=== PATIENT | male | born 1970 | race Two or more races ===

== ENCOUNTER → 2021-07-10 09:41 | Outpatient (BNVA) | payer SELFPAY | PROVIDERS: Visit Provider Physician Assistant Medical | DX: Z02.79 Encounter for issue of other medical certificate (principal) ==

== ENCOUNTER 2025-03-20 11:41 | Emergency (ER) | payer OTHER, SELFPAY ==
--- NOTE | 2025-03-20 11:48 | ED.GENADULT ---
HPI - General Adult General Chief complaint: Skin/Abscess/Foreign Body Stated complaint: Abscess inside L cheek Time Seen by Provider: 03/20/25 13:45 Source: patient Mode of arrival: ambulatory Limitations: no limitations History of Present Illness ED Provider: Dr. Alarcon HPI narrative: 54-year-old male otherwise healthy states he noticed swelling and ingrown hair versus acne versus spider bite to left side of his face 4 days ago he did use warm compresses but isn't worse since getting larger came in for evaluation. He denies any history of abscesses denies fevers chills cough shortness breath nausea vomiting diarrhea Related Data Previous Rx's ?Medication ?Instructions ?Recorded acetaminophen 325 mg tablet 325 mg PO QID PRN pain #90 tabs 03/20/25 (Tylenol) doxycycline hyclate 100 mg capsule 100 mg PO BID Cellulitis #20 caps 03/20/25 Allergies Allergy/AdvReac Type Severity Reaction Status Date / Time Penicillins Allergy Severe Anaphylaxis Verified 03/20/25 11:55 Review of Systems Review of Systems: Review of systems: General: Patient denies any fever chills recent illness or falls Musculoskeletal: Denies back pain or body aches or other injuries HEENT: denies headache, runny nose, ear pain Respiratory: denies shortness of breath, cough Cardiovascular: no chest pain or palpitations : denies dysuria, frequency Abdomen: no nausea vomiting denies abdominal pain Extremities: no swelling, no pain Skin: left facial induration swelling no diaphoresis Yes all other systems are reviewed and are negative Physical Exam ED Vital Signs: Vital Signs - 24 hr 03/20/25 11:54 Temperature 97.5 F Pulse Rate 123 H Respiratory Rate 18 Blood Pressure 130/87 Pulse Oximetry 98 Oxygen Delivery Method Room Air BMI result Body Mass Index 27.6 General: Well-appearing well-nourished in no signs of distress HEENT: Normocephalic atraumatic Neck: No signs of JVD, no masses no tenderness or lymphadenopathy Cardiovascular: Regular rate and rhythm Respiratory: Clear to auscultation bilaterally Abdomen: Soft nontender no masses Extremities: Normal pedal pulses no signs of edema Skin: concern for abscess versus cellulitis of the face patient has red indurated side of his face there is no fluctuance does have a black dot in the centerDry warm no rashes Back: No tenderness full ROM Course Course Course Narrative: This is a rapid medical exam performed by Srikanth Pradhan NP: Additional HPI, ROS, PE not included below will be deferred to primary provider. Patient is a 54-year-old male with history of T2DM presenting to the ED with complaint of redness and swelling to left side of face, ? abscess x 4 days. Tried warm compresses but area is getting larger. Subjective fever, nausea. Plan: labs Procedures Procedure Narrative Procedure Narrative: bedside ultrasound confirmed there was no abscess or fluid formation underneath just cobblestoning of the skin Medical Decision Making Medical Decision Making MDM Narrative: labs were sent triage which are fairly unremarkable other than an elevated WBC and minimally elevated CRP I do think this is cellulitis which was confirmed by bedside ultrasound I will send home Differential Diagnosis Differential Diagnoses: The differential diagnosis associated with the presentation includes abscess versus cellulitis Lab Data [facility] Lab Attestation statement: I reviewed the patient's lab results. 03/20/25 12:27 03/20/25 12:27 Labs: Lab Results 03/20/25 Range/Units 12:27 WBC 15.6 H (4.8-10.8) X10*3/uL RBC 5.68 (4.60-5.80) X10*6/uL Hgb 16.2 (14.0-18.0) g/dl Hct 45.7 (42.0-52.0) % MCV 80.5 (80.0-98.0) fL MCH 28.5 (27.0-33.0) pg MCHC 35.4 (31.0-36.0) g/dl RDW 11.9 (11.0-16.0) % Plt Count 358 (160-400) X10*3/uL MPV 9.6 (9.4-12.4) fL Immature Gran % (Auto) 0.4 (0.0-0.4) % Neut % (Auto) 67.0 (45-73) % Lymph % (Auto) 22.9 (20-40) % [place] % (Auto) 8.7 (2-11) % Eos % (Auto) 0.6 (0-4) % Baso % (Auto) 0.4 (0-2) % Lymph # (Auto) 3.6 (1.2-4.9) X10*3/uL [place] # (Auto) 1.4 H (0.1-1.2) X10*3/uL Eos # (Auto) 0.1 (0.0-0.4) X10*3/uL Baso # (Auto) 0.1 (0.0-0.2) X10*3/uL Abs Immat Gran (auto) 0.06 H (0.00-0.03) X10*3/uL Absolute Neuts (auto) 10.5 H (2.0-8.3) x10*3/uL Absolute Nucleated RBC 0.000 (0.0-0.012) X10*3/uL Nucleated RBC % (auto) 0.0 (0.0-0.2) /100WBC ESR 6 (0-15) MM/HR Sodium 131 L (135-145) mmol/L Potassium 5.4 H (3.3-5.1) mmol/L Chloride 95 L (96-108) mmol/L Carbon Dioxide 26 (22-29) mmol/L Anion Gap 15 (12-20) BUN 11 (9-16) mg/dL Creatinine 1.00 (0.5-1.4) mg/dL Estim Creat Clear Calc 87.4 Estimated GFR > 60 Random Glucose 386 H* (60-115) mg/dL Calcium 9.8 (8.4-10.2) mg/dL Total Bilirubin 1.6 H (0.0-1.0) mg/dL AST 26 (5-37) U/L ALT 36 (0-40) U/L Alkaline Phosphatase 59 (39-117) U/L C-Reactive Protein 1.12 H (< or = 0.50) mg/dL Total Protein 7.9 (6.5-8.0) g/dL Albumin 4.7 (3.5-5.0) g/dL Discharge Plan Discharge Clinical Impression: Cellulitis Patient Disposition: Home, Self-Care Instructions: Cellulitis (ED) Additional Instructions: You were seen today for infection to your face. You had labs sent which were okay and a US performed at the bedside. Please call to follow up . If you notice more swelling or have any other concerns please return to the ER. Prescriptions: New acetaminophen [Tylenol] 325 mg tablet 325 mg PO QID PRN (Reason: pain) Qty: 90 0RF doxycycline hyclate 100 mg capsule 100 mg PO BID Qty: 20 0RF Print Language: [place]er
[2025-03-20 11:54] VITALS: BP 130/87; PULSE 123; RESP 18; TEMP 36.4; O2SAT 98; BMI 27.6
[2025-03-20 12:32] LABS: MANUAL DIFF FLAG NO
[2025-03-20 12:35] LABS: Basophils Absolute Auto 0.1 X10*3/uL (0.0-0.2); Basophils Percent Auto 0.4 % (0-2); Eosinophils Absolute Auto 0.1 X10*3/uL (0.0-0.4); Eosinophils Percent Auto 0.6 % (0-4); Hematocrit 45.7 % (42.0-52.0); Hemoglobin 16.2 g/dl (14.0-18.0); Imm Gran Abs Auto 0.06 X10*3/uL (0.00-0.03); Imm Gran Pct Auto 0.4 % (0.0-0.4); Lymphocytes Absolute Auto 3.6 X10*3/uL (1.2-4.9); Lymphocytes Percent Auto 22.9 % (20-40); Mean Corpuscular HGB Conc 35.4 g/dl (31.0-36.0); Mean Corpuscular Hemoglobin 28.5 pg (27.0-33.0); Mean Corpuscular Volume 80.5 fL (80.0-98.0); Mean Platelet Volume 9.6 fL (9.4-12.4); Monocytes Absolute Auto 1.4 X10*3/uL (0.1-1.2); Monocytes Percent Auto 8.7 % (2-11); Neutrophils Absolute Auto 10.5 x10*3/uL (2.0-8.3); Platelet Count 358 X10*3/uL (160-400); Red Blood Count 5.68 X10*6/uL (4.60-5.80); Red Cell Distribution Width 11.9 % (11.0-16.0); White Blood Count 15.6 X10*3/uL (4.8-10.8)
[2025-03-20 13:00] LABS: Alanine Aminotransferase 36 U/L (0-40); Albumin Level 4.7 g/dL (3.5-5.0); Alkaline Phosphatase 59 U/L (39-117); Anion Gap 15 (12-20); Aspartate Amino Transferase 26 U/L (5-37); Bilirubin Total 1.6 mg/dL (0.0-1.0); Blood Urea Nitrogen 11 mg/dL (9-16); C Reactive Protein 1.12 mg/dL (< or = 0.50); Calcium 9.8 mg/dL (8.4-10.2); Carbon Dioxide 26 mmol/L (22-29); Chloride 95 mmol/L (96-108); Creatinine Clr Calc Pharmacy 87.4; Estimated Glomerular Filt Rate > 60; Glucose Random 386 mg/dL (60-115); Potassium 5.4 mmol/L (3.3-5.1); Sodium 131 mmol/L (135-145); Total Protein 7.9 g/dL (6.5-8.0)
[2025-03-20 13:13] LABS: Erythrocyte Sedimentation Rate 6 MM/HR (0-15)
[2025-03-20 14:10] VITALS: BP 142/84; PULSE 102; RESP 18; TEMP 36.6; O2SAT 97
[2025-03-20] MEDS: Doxycycline Monohydrate 100 MG CAPSULE PO (14:18)
[2025-03-20 14:21] VITALS: BP 142/84; PULSE 100; RESP 18; TEMP 36.6; O2SAT 97
[2025-03-20 14:26] VITALS: BP 142/84; PULSE 100; RESP 18; TEMP 36.6; O2SAT 97
--- OUTSIDE RECORDS SUMMARY | 2025-03-20 15:16 | XMS_ITS | Encounter Summary ---
Author Organization [facility] Address [address] [place] [address] Care Team Providers Care Plier Worker Name Role Phone Ema Winkler MD Primary Care Provider Reason for Visit * Reason Onset Date Comments Facial Swelling 03/20/2025 ABSESS ON LEFT SIDE OF FACE 03/20/2025 Encounter Details Date Type Department Care Team (Late st Contact Info) Description 03/20/2025 Telephone Adult Medicine [address] [phone] Citlaly Pinzon [place] Facial Swelling; ABSESS ON LEFT SIDE OF FACE Social History Tobacco Use Types Packs/Day Years Used Date Smoking Tobacco: Never Smokeless Tobacco: Never Alcohol Use Standard Drinks/Week Comments No 0 (1 standard drink = 0.6 oz pur e alcohol) Sex and Gender Information Value Date Recorded Sex Assigned at Not on file Legal Sex Male 9:50 PM EST Gender Identity Not on file Sexual Orientation Not on file documented as of this encounter Progress Notes * Elsy David RN - 03/20/2025 9:20 AM EDT Called pt. He stated about 3-4 days ago he had a ingrown hair on left side of face . I was messingwith it now he has a hard as a rock area on left side of face that is causing swelling from corner of mouth to under his left eye all on left side of face . Last night he felt he had a fever, dizziness and nausea . Today he is sweating, but no nausea or dizziness . His blood glucose is high but he hasn't checked it he estimates it is 270ish. I advised to be evaluated in the ER. And to avoid concentrated sugars , and have someone drive him. Pt. Verbalized understanding * Citlaly Pinzon MA - 03/20/2025 8:40 AM EDT Patient call requires triage: Symptoms patient is presenting: ABSCESS ON LEFT SIDE OF FACE WITH PAIN AND SWELLING. STARTED OUT ASA LITTLE PIMPLE AND ITS HAS GOTTEN LARGER AND VERY PAINFUL. IT LOOKS INFECTED .THINKS HE HAD A FEVER LAST NIGHT. PATIENT WAS FEELING COLD LAST NIGHT. How long has patient had these symptoms?: 4 DAYS For ALL patients calling to schedule any appointment (routine, sick visit, follow up, consult, etc.) in the outpatient setting please ask the following questions: Do you have fever of higher than 101, sore throat with difficulty swallowing or severe shortness ofbreath? no If YES to any of these above symptoms, send a message to triage and do not book. Red dot. If no, an audio or video visit should be booked. Have you had close contact with someone with Coronavirus in the last 14 days? no Have you traveled abroad? no Have you traveled recently to another state outside of [place], [place], [place], [place], [place], [place], [place]? no o If yes, did you quarantine for 14 days or have a negative covid test? no If yes to any of the above, patient is not to be scheduled in office until after 14 day quarantine or negative covid test. If pain or injury related was it due to an accident at work or from a motor vehicle accident? If yes, date of accident/Injury: No If yes, gather 3rd constitution party insurance information Third Constitution Party Information: not applicable PCP: Ema Winkler MD Payor: [employer] HE[employer]AN / Plan: [employer] MEDICAID / Product Type: *No Product type* / documented in this encounter Plan of Treatment Upcoming Encounters Date Type Department Care Team (Late st Contact Info) Description 03/30/2025 10:45 AM EDT Office Visit Adult Medicine [address] [phone] Indira Clifford PA [address] [place] [id number] documented as of this encounter Visit Diagnoses Not on filedocumented in this encounter Care Teams Plier Worker Relationship Specialty Start Date End Date Ema Winkler MD [address] [place] [address] PCP - General 09/15/22 documented as of this encounter
--- OUTSIDE RECORDS SUMMARY | 2025-03-20 15:16 | XMS_ITS | Clinical Summary ---
Author Organization [address] Address [address] [place] [phone] Phone Care Team Providers Care Home Advisor Name Role Phone Ema Winkler MD Primary Care Provider Allergies Active Allergy Reactions Criticality Noted Date Comments Bee Venom Protein (Honey Bee) Anaphylaxis High 11/11 Penicillin G Anaphylaxis High 11/11/2018 Medications EPINEPHrine (EpiPen 2-Ilya) 0.3 mg/0.3 mL injection Inject 0.3 mL (0.3 mg total) into the thigh. 2 Active buPROPion SR (WELLBUTRIN SR) 150 mg 12 hr tablet Take 1 tablet (150 mg total) by mouth 1 (one) time each day in the morning. 2 Active bisacodyL (DULCOLAX) 5 mg EC tablet Take 2 tabs by mouth right before beginning bowel prep. Follow instructions given by office for timing. 3 Active albuterol HFA (PROAIR HFA ; PROVENTIL HFA ; VENTOLIN HFA) 90 mcg/actuation inhaler Inhale 2 puffs by mouth. 4 Active aspirin 81 mg EC tablet Take 1 tablet (81 mg total) by mouth. Active multivitamin (MULTIPLE VITAMINS ORAL) Take by mouth. Active blood sugar diagnostic (FreeStyle Lite Strips) test strip USE DAILY TO TEST BLOOD SUGAR. 0 Active FREESTYLE LANCETS MISC USE DAILY TO TEST BLOOD SUGAR. 0 Active simvastatin (ZOCOR) 20 mg tablet TAKE 1 TABLET BY MOUTH EVERYDAY AT BEDTIME 90 tablet 5 Active lisinopriL (PRINIVIL,ZESTR IL) 10 mg tablet TAKE 1 TABLET BY MOUTH 1 TIME EACH DAY. 90 tablet 5 Active metFORMIN (GLUCOPHAGE) 1,000 mg tablet Take 1 tablet (1,000 mg total) by mouth 1 (one) time each day with breakfast. 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 V24, [facility] V28) 03/10/2019 Hypertriglyceridemia 03/10/2019 Microalbuminuria 03/10/2019 Overweight (BMI 25.0-29.9) 03/10/2019 Hypertension 11/11/2018 Insomnia 11/11/2018 Encounters Date Type Department Care Team Description 03/20/2025 Telephone Adult Medicine [address] [phone] [place] Facial Swelling; ABSESS ON LEFT SIDE OF FACE from Last 3 Months Surgical History Surgery Date Site/Laterality Comments APPENDECTOMY PROCEDURE: HISTORICAL APPENDECTOMY Medical History Medical History Date Comments Type 2 diabetes mellitus wit h renal manifestations ([facility] V24, [facility] V28) 03/10/2019 DX:Type 2 di abetes mellitus with renal manifestations (HCC) Microalbuminuria 03/10/2019 DX:Microalbumin uria Hypertriglyceridemia 03/10/2019 DX:Hypertri glyceridemia Insomnia 11/11/2018 DX:Insomnia Hypertension 11/11/2018 DX:Hypertension Obesity (BMI 30-39.9) 03/10/2019 DX:Obesity (BMI 30-39.9) Family History Medical History Relation Name Comments Breast cancer Aunt Diabetes Mother Hypertension Mother Cervical cancer Sister Relation Name Status Comments Aunt Mother Sister Social History Tobacco Use Types Packs/Day Years Used Date Smoking Tobacco: Never Smokeless Tobacco: Never Alcohol Use Standard Drinks/Week Comments No 0 (1 standard drink = 0.6 oz pur e alcohol) Sex and Gender Information Value Date Recorded Sex Assigned at Not on file Legal Sex Male 9:50 PM EST Gender Identity Not on file Sexual Orientation Not on file Obstetrics History Last Filed Vital Signs Vital Sign Reading Time Taken Comments Blood Pressure 100/64 09/06/2024 10:51 AM EDT Pulse 93 09/06/2024 10:51 AM EDT Temperature - - Respiratory Rate - - Oxygen Saturation - - Inhaled Oxygen Concentration - - Weight 80.3 kg (177 lb) 09/06/2024 10:51 AM EDT Height 170.2 cm (5' 7 ) 09/06/2024 10:51 AM EDT Body Mass Index 27.72 09/06/2024 10:51 AM EDT Plan of Treatment Upcoming Encounters Date Type Department Care Team (Late st Contact Info) Description 03/30/2025 10:45 AM EDT Office Visit Adult Medicine [facility] [address] [place] [address] Indira Clifford PA [address] [place] [address] Health Maintenance Due Date Last Done Comments Diabetes: Annual Foot Exam 1982 Diabetes: Annual Retina Eye Exam 1982 DTaP,Tdap,and Td Vaccines (1 - Tdap) 1991 Hepatitis B Vaccines (1 of 3 - 19+ 3-dose series) 1991 Pneumococcal Vaccine: 50+ Ye ars (1 of 2 - PCV) 1991 Pneumococcal Vaccine: Pediat rics (0 to 5 Years) and At-Risk Patients (6 to 64 Years) (1 of 2 - PCV) 1991 Zoster Vaccines (1 of 2) 2022 Colorectal Cancer Screening: Colonoscopy 10/17/2022 Depression Screening 10/17/2022 HIV Screening 10/17/2022 Hepatitis C Screening 10/17/2022 Social Influencers of Health Screening 10/17/2022 COVID-19 Vaccine (1 - 2023-2 5 season) 2024 Diabetes: Blood Sugar Contro l Test (HGBA1C) 03/07/2025 09/06/2024 Influenza Vaccine (Season Ended) 2025 Diabetes: Annual Urine Albumin-Creatinine Ratio (uACR) 09/06/2025 09/06/2024 Diabetes: Annual GFR (Glomer ular Filtration Rate) 09/06/2025 09/06/2024 Hypertension/CHF/CAD Annual BMP Blood Test 09/06/2025 09/06/2024 Cholesterol Screening (Lipid Panel) 09/06/2029 09/06/2024 HIB Vaccines Aged Out No longer eligi ble based on patient's age to complete this topic HPV Vaccines Aged Out No longer eligi ble based on patient's age to complete this topic Hepatitis A Vaccines Aged Out No long er eligible based on patient's age to complete this topic IPV Vaccines Aged Out No longer eligi ble based on patient's age to complete this topic MMR Vaccines Aged Out No longer eligi ble based on patient's age to complete this topic Meningococcal ACWY Vaccine Aged Out N o longer eligible based on patient's age to complete this topic Meningococcal B Vaccine Aged Out No l onger eligible based on patient's age to complete this topic RSV Immunization Patients Un janey 20 months Aged Out No longer eligible b ased on patient's age to complete this topic Varicella Vaccines Aged Out No longer eligible based on patient's age to complete this topic Insurance Care Teams Home Advisor Relationship Specialty Start Date End Date Ema Winkler MD [address] [place] [address] PCP - General 09/15/22
--- OUTSIDE RECORDS SUMMARY | 2025-03-20 15:16 | XMS_ITS | Encounter Summary ---
Author Organization [facility] Address [address] [place] [address] Care Team Providers Care Director Blood Bank Name Role Phone Nanette Oleary MD Primary Care Provider [facility] Eliceo Santillan MD Primary Care Provider [phone] Ema Winkler MD Primary Care Provider [phone] Reason for Visit * Reason Onset Date Comments TEST RESULTS 08/14/2019 result notes Encounter Details Date Type Department Care Team Description 08/14/2019 Telephone Adult Medicine [address] [phone] Ana Cristina Penaloza PA-C TEST RESULTS (result notes) Social History Tobacco Use Types Packs/Day Years Used Date Smoking Tobacco: Never Smokeless Tobacco: Never Alcohol Use Standard Drinks/Week Comments No 0 (1 standard drink = 0.6 oz pur e alcohol) Sex Assigned at Date Recorded Not on file Job Start Date Occupation Industry Not on file Not on file Not on file documented as of this encounter Miscellaneous Notes * Telephone Encounter - Shakeel Alejandre M.A. - 08/14/2019 9:14 AM EDT Spoke with patient he is aware of his results. Please let patient know that the blood work did look normal. I would recommend that he continue with his cholesterol medication and make sure he is drinking plenty of water. He may trial a [id number] magnesium supplement before bed at night for his leg cramps. documented in this encounter Plan of Treatment Not on file documented as of this encounter Visit Diagnoses Not on filedocumented in this encounter Care Teams Director Blood Bank Relationship Specialty Start Date End Date Nanette Oleary MD PCP - General Internal Medicine 11/11/18 09/08/21 Eliceo Ni MD [address] [place] [id number] PCP - General Internal Medicine 09/09/21 09/14/22 Ema Winkler MD [address] [place] [id number] PCP - General Internal Medicine 09/15/22 documented as of this encounter
--- OUTSIDE RECORDS SUMMARY | 2025-03-20 15:16 | XMS_ITS | Clinical Summary ---
Author Organization [facility] Address [address] [place] [address] Care Team Providers Care Cash Surrender Calculator Name Role Phone Ema Winkler MD Primary Care Provider [phone] Allergies Active Allergy Reactions Severity Noted Date Comments Bee Stings Anaphylaxis High 11/11/2018 Penicillin G Anaphylaxis High 11/11/2018 Medications Medication Sig Dispensed Refills Start Date End Date Status Multiple Vitamin (ONE-A-DAY MENS OR) Take by mouth. 0 A ctive aspirin 81 MG tablet Take 81 mg by mouth daily. 0 Active Glucose Blood (FREESTYLE LITE) Strip USE DAILY TO TEST BLOOD SUGAR. 100 Strip 5 07/24/2020 Active FREESTYLE LANCETS Misc USE DAILY TO TEST BLOOD SUGAR. 100 Each 5 07/24/2020 Active EPINEPHrine 0.3 MG/0.3ML Solution Auto-injector Inject 0.3 mg into the muscle as needed for Other (anaphylactic reaction). 2-pack. Fill with whichever brand is covered by insurance. 2 Each 2 01/28/2022 Active buPROPion (WELLBUTRIN SR) 150 MG 12 hr tablet TAKE 1 TABLET BY MOUTH ONCE DAILY IN THE MORNING 0 09/30/2022 Active bisacodyl (Dulcolax) 5 MG EC tablet Take 2 tabs by mouth right before beginning bowel prep. Follow instructions given by office for timing. 2 Tablet 0 06/01/2023 Active lisinopril (PRINIVIL,ZESTRIL) 10 MG tabletIndications:Pr imary hypertension Take 1 Tablet by mouth daily. 90 Tablet 0 06/06/2024 Active simvastatin (ZOCOR) 20 MG tabletIndications:Hy perlipidemia, unspecified hyperlipidemia type Take 1 Tablet by mouth at bedtime. 90 Tablet 0 06/06/2024 Active metformin (GLUCOPHAGE) 1000 MG tabletIndications:Ty pe 2 diabetes mellitus with microalbuminuria, without long-term current use of insulin (HCC) Take 1 Tablet by mouth daily (with breakfast). 90 Tablet 0 06/06/2024 Active ALBUTEROL SULFATE 108 (90 Base) MCG/ACT Aero Soln Inhale 2 Puffs into the lungs every 4 hours as needed for Cough, Wheezing or Shortness of Breath. 13 g 1 09/06/2024 Active Active Problems Problem Noted Date Urinary frequency 06/06/2024 Diabetes mellitus with macroalbuminuric diabetic nephropathy 03/10/2019 Microalbuminuria 03/10/2019 Hypertriglyceridemia 03/10/2019 Overweight (BMI 25.0-29.9) 03/10/2019 Hypertension 11/11/2018 Insomnia 11/11/2018 Resolved Problems Problem Noted Date Resolved Date Bee sting allergy 11/11/2018 03/10/2019 Dyslipidemia 11/11/2018 03/10/2019 Uncontrolled type 2 diabetes mellitus with hyper glycemia 11/11/2018 03/10/2019 Family History Medical History Relation Name Comments CA Breast Aunt Diabetes Mother Hypertension Mother Cervical Cancer Sister Relation Name Status Comments Aunt Mother Sister Social History Tobacco Use Types Packs/Day Years Used Date Smoking Tobacco: Never Passive Smoke Exposure: Past Smokeless Tobacco: Never Tobacco Cessation:Counseling Given: Not Answered Alcohol Use Standard Drinks/Week Comments No 0 (1 standard drink = 0.6 oz pur e alcohol) Sex Assigned at Date Recorded Not on file Job Start Date Occupation Industry Not on file Not on file Not on file Last Filed Vital Signs Vital Sign Reading Time Taken Comments Blood Pressure 100/64 09/06/2024 10:51 AM EDT Pulse 93 09/06/2024 10:51 AM EDT Temperature 36.3 ??C (97.4 ??F) 09/06/2024 10:51 AM E DT Respiratory Rate 12 09/06/2024 10:51 AM EDT Oxygen Saturation 97% 06/06/2024 8:42 AM EDT Inhaled Oxygen Concentration - - Weight 80.3 kg (177 lb) 09/06/2024 10:51 AM EDT Height 170.2 cm (5' 7 ) 09/06/2024 10:51 AM EDT Body Mass Index 27.72 09/06/2024 10:51 AM EDT Plan of Treatment Health Maintenance Due Date Last Done Comments Covid-19 Vaccine (#1) 04/12/1971 DIABETES: ANNUAL EYE EXAM 1990 DTAP/TDAP/TD (1 - Tdap) 1991 PNEUMOCOCCAL VACCINE FOR HIGH RISK PATIENTS (#1) 1991 COLON CANCER SCREENING 2022 DIABETES: ANNUAL FOOT EXAM 11/05/202211/05, 07/24/2020 (Completed), 07/24/2020, Additional history exists BMI CHECK/ADVISE 11/08/2024 09/06/2024, , 12/08/2023, Additional history exists DEPRESSION SCREENING/FOLLOWUP 11/08/2024 09/15/2022 (Completed), 02/10/2021, 08/11/2019, Additional history exists SOCIAL NEEDS SCREENING 11/08/2024 , 01/28/2022, 02/10/2021, Additional history exists DIABETES: BLOOD SUGAR CONTROL TEST (HGBA1C) 12/07/2024 09/06/2024, 01/08/2023, 01/08/2023, Additional history exists SHINGLES VACCINE (1 of 2) 06/06/2025 Po stponed from 2022 (Other Circumstances) INFLUENZA (Season Ended) 2025 DIABETES/HEART DISEASE: ANNUAL CHOLESTEROL (LDL) 09/06/2025 09/06/2024, 01/08/2023, 12/16/2021, Additional history exists DIABETES: ANNUAL URINE PROTEIN TEST (MICROALBUMIN) 09/06/2025 09/06/2024, 01/08/2023, 09/30/2022, Additional history exists BASELINE HEALTH EXAM 40-64 09/06/202609/06, 12/08/2023, 09/15/2022 (Completed) Care Teams Cash Surrender Calculator Relationship Specialty Start Date End Date Ema Winkler MD [address] [place] [id number] PCP - General Internal Medicine 09/15/22
--- OUTSIDE RECORDS SUMMARY | 2025-03-20 15:16 | XMS_ITS | Encounter Summary ---
Author Organization [facility] Address [address] [place] [address] Care Team Providers Care Aircraft Hydraulic Equipment Mechanic Name Role Phone Ema Winkler MD Primary Care Provider [phone] Reason for Visit * Reason Onset Date Comments refill request 07/05/2023 Encounter Details Date Type Department Care Team Description 07/05/2023 Telephone Adult Medicine [facility] [address] [place], [place] [id number] Ema Winkler MD [address] [place] [address] refill request Social History Tobacco Use Types Packs/Day Years Used Date Smoking Tobacco: Never Passive Smoke Exposure: Past Smokeless Tobacco: Never Alcohol Use Standard Drinks/Week Comments No 0 (1 standard drink = 0.6 oz pur e alcohol) Sex Assigned at Date Recorded Not on file Job Start Date Occupation Industry Not on file Not on file Not on file documented as of this encounter Miscellaneous Notes * Telephone Encounter - Janey Pham M.A. - 07/05/2023 10:29 AM EDT What does pt need? * Telephone Encounter - Cayden Finn - 07/05/2023 10:19 AM EDT Patient would like script to be: E-PRESCRIBED/FAXED TO PHARMACY WHEN WAS THE PATIENT'S LAST APPOINTMENT IN ADULT MEDICINE? 01/08/23 WHEN WAS THE LAST TIME THE PATIENT SAW THEIR PCP? Same as above Does patient have an upcoming appointment? Yes 08/11/23 (THE MEDICATION REQUESTED IS ON THE MED LIST ABOVE) All of the medications requested were on the CURRENT MEDS list Did you check the Pharmacy information above?: NO Patient wants: 30 -day supply Is this a mail order prescription request ? NO If the refill is from a FAXED refill request what is the RX # listed on the fax? N/A Patients current insurance carrier is: Payor: [facility] [employer] / Plan: [facility] / Product Type: MEDICAID RISK documented in this encounter Plan of Treatment Not on file documented as of this encounter Visit Diagnoses Not on filedocumented in this encounter Care Teams Aircraft Hydraulic Equipment Mechanic Relationship Specialty Start Date End Date Ema Winkler MD [address] [place] [id number] PCP - General Internal Medicine 09/15/22 documented as of this encounter
--- OUTSIDE RECORDS SUMMARY | 2025-03-20 15:16 | XMS_ITS | Encounter Summary ---
Author Organization [facility] Address [address] [place] [address] Care Team Providers Care Bit Gatherer Name Role Phone Nanette Oleary MD Primary Care Provider Unavail able Eliceo Ni MD Primary Care Provider [phone] Ema Winkler MD Primary Care Provider [phone] Encounter Details Date Type Department Care Team Description 04/22/2019 Release of Information Medical Records [address] [place] [id number] Abstract, Provider Social History Tobacco Use Types Packs/Day Years Used Date Smoking Tobacco: Never Smokeless Tobacco: Never Alcohol Use Standard Drinks/Week Comments No 0 (1 standard drink = 0.6 oz pur e alcohol) Sex Assigned at Date Recorded Not on file Job Start Date Occupation Industry Not on file Not on file Not on file documented as of this encounter Plan of Treatment Not on file documented as of this encounter Visit Diagnoses Not on filedocumented in this encounter Care Teams Bit Gatherer Relationship Specialty Start Date End Date Nanette Oleary MD PCP - General Internal Medicine 11/11/18 09/08/21 Eliceo Ni MD [address] [place] [id number] PCP - General Internal Medicine 09/09/21 09/14/22 Ema Winkler MD [address] [place] [id number] PCP - General Internal Medicine 09/15/22 documented as of this encounter
--- OUTSIDE RECORDS SUMMARY | 2025-03-20 15:16 | XMS_ITS | Encounter Summary ---
Author Organization [facility] Address [address] [place] [address] Care Team Providers Care Curtain Drier Name Role Phone Nanette Oleary MD Primary Care Provider [facility] Eliceo Santillan MD Primary Care Provider [phone] Ema Winkler MD Primary Care Provider [phone] Reason for Visit * Reason Onset Date Comments TEST RESULTS 02/21/2019 Encounter Details Date Type Department Care Team Description 02/21/2019 Telephone Adult [address] [phone] Nanette Oleary MD TEST RESULTS Social History Tobacco Use Types Packs/Day Years Used Date Smoking Tobacco: Never Smokeless Tobacco: Never Sex Assigned at Date Recorded Not on file Job Start Date Occupation Industry Not on file Not on file Not on file documented as of this encounter Miscellaneous Notes * Telephone Encounter - Micaela Melchor M.A. - 02/21/2019 12:21 PM EDT Labs were ordered by Dr Uam Haro. please review and advise * Telephone Encounter - Birdie Murillo - 02/21/2019 12:07 PM EDT Inform patient: ANY URGENT OR ABNORMAL RESULTS WIILL RESULT IN A CALL BACK TO THE PATIENT ERIC. Type of test: :LABS Date test was performed: 02/17/19 Where was the test performed: [facility] Who ordered this test?: Is the doctor here today?: YES Can the message wait until the doctor returns?: NO IF PATIENT'S PCP IS NOT IN INSTRUCT PATIENT THAT THEY WILL RECEIVE A CALL BACK WHEN THE PCP IS IN THE OFFICE NEXT. documented in this encounter Plan of Treatment Not on file documented as of this encounter Visit Diagnoses Not on filedocumented in this encounter Care Teams Curtain Drier Relationship Specialty Start Date End Date Nanette Oleary MD PCP - General Internal Medicine 11/11/18 09/08/21 Eliceo Ni MD [address] [place] [id number] PCP - General Internal Medicine 09/09/21 09/14/22 Ema Winkler MD [address] [place] [address] [phone] PCP - General Internal Medicine 09/15/22 documented as of this encounter
== END 2025-03-20 14:27 | disposition home or self-care (01) ==
PROVIDERS: Registered Nurse Emergency; Emergency Provider Student in an Organized Health Care Education/Training Program; PCP Internal Medicine
DX: L03.211 Cellulitis of face (principal)
CPT/HCPCS: 36415; 80053; 85025; 85652; 86140; 99282; 99283